=== PATIENT | female | born 1945 | race Caucasian/White ===

== ENCOUNTER 2018-05-29 01:21 | Observation (INO) | payer MEDICARE, OTHER ==
[2018-05-29 01:36] LABS: ABNORMAL IP MESSAGE 1; ADD MAN DIFF? NO; BASOPHILS % 0.2 % (0.0-2.0); EOSINOPHILS # 0.3 10^3/ul (0.0-0.5); EOSINOPHILS % 2.8 % (0.0-7.0); HEMATOCRIT 33.3 % (37.0-47.0); HEMOGLOBIN 11.3 g/dl (12.0-16.0); LYMPHOCYTES # 5.5 10^3/ul (0.8-2.9); LYMPHOCYTES % 51.4 % (15.0-51.0); MEAN CORPUSCULAR HEMOGLOBIN 28.5 pg (29.0-33.0); MEAN CORPUSCULAR HGB CONC 33.9 g/dl (32.0-37.0); MEAN CORPUSCULAR VOLUME 84.1 fl (82.0-101.0); MEAN PLATELET VOLUME 9.5 fl (7.4-10.4); MONOCYTE # 0.6 10^3/ul (0.3-0.9); MONOCYTES % 5.5 % (0.0-11.0); NEUTROPHIL # 4.3 10^3/ul (1.6-7.5); NEUTROPHILS % 39.9 % (39.0-77.0); PLATELET COUNT 243 10^3/UL (140-415); RED BLOOD COUNT 3.96 10^6/ul (4.20-5.40); RED CELL DISTRIBUTION WIDTH 14.3 % (11.5-14.5)
[2018-05-29 01:36] LABS: WHITE BLOOD COUNT 10.7 10^3/ul (4.8-10.8)
[2018-05-29 01:38] LABS: POSITIVE DIFF @See below
[2018-05-29 01:59] LABS: ANION GAP 16 (5-13); BLOOD UREA NITROGEN 14 mg/dl (7-20); CALCIUM 10.3 mg/dl (8.4-10.2); CARBON DIOXIDE 24 mmol/L (21-31); CHLORIDE 94 mmol/L (97-110); CREATININE 0.57 mg/dl (0.44-1.00); GLUCOSE 198 mg/dl (70-220); POTASSIUM 3.7 mmol/L (3.5-5.1); SODIUM 134 mmol/L (135-144)
[2018-05-29 02:10] LABS: TROPONIN-I < 0.012 ng/ml (0.000-0.120)
[2018-05-29] MEDS ORDERED: ONDANSETRON 4 MG INJ IV ×2 (03:30→20:30)
[2018-05-29] MEDS ORDERED: ACETAMINOPHEN 325 MG TAB PO ×2 (03:30→20:30)
[2018-05-29 09:37] LABS: CREATINE KINASE 35 IU/L (23-200)
[2018-05-29 09:50] LABS: CK INDEX 1.9; CK-MB 0.65 ng/ml (0.0-2.4); TROPONIN-I 0.059 ng/ml (0.000-0.120)
[2018-05-29 12:44] LABS: CREATINE KINASE 27 IU/L (23-200)
[2018-05-29 12:58] LABS: CK INDEX 1.9; TROPONIN-I 0.025 ng/ml (0.000-0.120)
[2018-05-29] MEDS ORDERED: NACL 0.9% 3 ML SYG IV (20:30)
[2018-05-29] MEDS ORDERED: ALBUTEROL/IPRATROPIUM (NEB) 3 ML AMP HHN (20:30)
[2018-05-29] MEDS ORDERED: NITROGLYCERIN (SL) 0.4 MG TAB SL (20:30)
[2018-05-29] MEDS ORDERED: HEPARIN 5,000 UNIT/0.5 ML VIAL (20:56)
[2018-05-29] MEDS ORDERED: GLUCOSE GEL 15 GRAM TUBE BUCCAL (21:00)
[2018-05-29] MEDS ORDERED: DEXTROSE 50% 50 ML SYRINGE IV ×2 (21:00)
[2018-05-29] MEDS ORDERED: GLUCOSE GEL 15 GRAM TUBE PO ×2 (21:00)
[2018-05-29] MEDS ORDERED: GLUCAGON 1 MG INJ IM (21:00)
[2018-05-29] MEDS: ATORVASTATIN 20 MG TAB PO (21:17)
[2018-05-29 21:23] LABS: CREATINE KINASE 24 IU/L (23-200)
[2018-05-29] MEDS: HEPARIN SODIUM 5,000 UNIT/ML VIAL SC (21:27)
[2018-05-29 21:36] LABS: CK INDEX 1.5; CK-MB 0.36 ng/ml (0.0-2.4); TROPONIN-I 0.013 ng/ml (0.000-0.120)
[2018-05-30 03:16] LABS: CREATINE KINASE < 20 IU/L (23-200)
[2018-05-30 03:28] LABS: CK-MB 0.37 ng/ml (0.0-2.4); TROPONIN-I 0.037 ng/ml (0.000-0.120)
[2018-05-30 06:37] LABS: ADD MAN DIFF? NO
[2018-05-30 06:44] LABS: BASOPHILS % 0.3 % (0.0-2.0); EOSINOPHILS # 0.2 10^3/ul (0.0-0.5); EOSINOPHILS % 2.3 % (0.0-7.0); HEMATOCRIT 34.3 % (37.0-47.0); HEMOGLOBIN 11.5 g/dl (12.0-16.0); LYMPHOCYTES # 4.6 10^3/ul (0.8-2.9); LYMPHOCYTES % 52.9 % (15.0-51.0); MEAN CORPUSCULAR HGB CONC 33.5 g/dl (32.0-37.0); MEAN CORPUSCULAR VOLUME 86.4 fl (82.0-101.0); MEAN PLATELET VOLUME 9.5 fl (7.4-10.4); MONOCYTE # 0.6 10^3/ul (0.3-0.9); MONOCYTES % 6.9 % (0.0-11.0); NEUTROPHIL # 3.3 10^3/ul (1.6-7.5); NEUTROPHILS % 37.4 % (39.0-77.0); PLATELET COUNT 230 10^3/UL (140-415); RED BLOOD COUNT 3.97 10^6/ul (4.20-5.40); RED CELL DISTRIBUTION WIDTH 14.3 % (11.5-14.5)
[2018-05-30 06:44] LABS: WHITE BLOOD COUNT 8.7 10^3/ul (4.8-10.8)
[2018-05-30 06:53] LABS: HEMOGLOBIN A1C 6.3 % (0-5.9)
[2018-05-30 07:16] LABS: ALANINE AMINOTRANSFERASE 21 IU/L (13-69); ALBUMIN 3.4 g/dl (3.3-4.9); ALKALINE PHOSPHATASE 73 IU/L (42-121); ANION GAP 9 (5-13); ASPARTATE AMINO TRANSFERASE 20 IU/L (15-46); BILIRUBIN,INDIRECT 0.1 mg/dl (0-1.1); BILIRUBIN,TOTAL 0.1 mg/dl (0.2-1.3); BLOOD UREA NITROGEN 14 mg/dl (7-20); CALCIUM 9.5 mg/dl (8.4-10.2); CARBON DIOXIDE 28 mmol/L (21-31); CHLORIDE 99 mmol/L (97-110); CHOL/HDL RATIO 3.6 RATIO; CHOLESTEROL 142 mg/dl (100-200); CREATININE 0.56 mg/dl (0.44-1.00); GLUCOSE 160 mg/dl (70-220); HDL CHOLESTEROL 39 mg/dl (33-92); LDL CHOLESTEROL,CALCULATED 73 mg/dl; MAGNESIUM 1.9 mg/dl (1.7-2.5); POTASSIUM 4.1 mmol/L (3.5-5.1); SODIUM 136 mmol/L (135-144); TOTAL PROTEIN 6.8 g/dl (6.1-8.1); TRIGLYCERIDES 148 mg/dl (0-149)
[2018-05-30] MEDS ORDERED: HEPARIN 5,000 UNIT/0.5 ML VIAL ×2 (08:06→21:16)
[2018-05-30] MEDS: metFORMIN 500 MG TAB PO (08:09)
[2018-05-30] MEDS: HYDROCHLOROTHIAZIDE 25 MG TAB PO (08:10)
[2018-05-30] MEDS: ATENOLOL 25 MG TAB PO (08:10)
[2018-05-30] MEDS: LOSARTAN 50 MG TAB PO (08:10)
[2018-05-30] MEDS: ASPIRIN (EC) 81 MG TAB PO (08:10)
[2018-05-30] MEDS: ISOSORBIDE MONONITRATE(SR)60 MG TAB PO (08:10)
[2018-05-30] MEDS: AMLODIPINE 10 MG TAB PO (08:10)
[2018-05-30] MEDS: HEPARIN SODIUM 5,000 UNIT/ML VIAL SC ×2 (08:19→21:23)
[2018-05-30] MEDS ORDERED: NON-FORMULARY/PATIENT OWN MED (Olmesartan-Amlodipine-HCTZ (Tribenzor) 1 TAB) PO (09:00)
[2018-05-30] MEDS: SOD CHLORIDE 0.9% 100 ML (20:43)
[2018-05-30] MEDS: IOHEXOL 100 ML (20:43)
[2018-05-30] MEDS: ATORVASTATIN 20 MG TAB PO (21:20)
[2018-05-31 07:01] LABS: ADD MAN DIFF? NO
[2018-05-31 07:11] LABS: BASOPHILS % 0.3 % (0.0-2.0); EOSINOPHILS # 0.2 10^3/ul (0.0-0.5); EOSINOPHILS % 2.2 % (0.0-7.0); HEMATOCRIT 33.5 % (37.0-47.0); HEMOGLOBIN 11.3 g/dl (12.0-16.0); LYMPHOCYTES # 4.1 10^3/ul (0.8-2.9); LYMPHOCYTES % 40.2 % (15.0-51.0); MEAN CORPUSCULAR HEMOGLOBIN 28.9 pg (29.0-33.0); MEAN CORPUSCULAR HGB CONC 33.7 g/dl (32.0-37.0); MEAN CORPUSCULAR VOLUME 85.7 fl (82.0-101.0); MEAN PLATELET VOLUME 9.8 fl (7.4-10.4); MONOCYTE # 0.7 10^3/ul (0.3-0.9); MONOCYTES % 7.2 % (0.0-11.0); NEUTROPHILS % 49.8 % (39.0-77.0); PLATELET COUNT 249 10^3/UL (140-415); RED BLOOD COUNT 3.91 10^6/ul (4.20-5.40); RED CELL DISTRIBUTION WIDTH 14.2 % (11.5-14.5)
[2018-05-31 07:11] LABS: WHITE BLOOD COUNT 10.1 10^3/ul (4.8-10.8)
[2018-05-31 07:43] LABS: LIPASE 92 U/L (23-300)
[2018-05-31 07:55] LABS: ALANINE AMINOTRANSFERASE 22 IU/L (13-69); ALBUMIN 3.9 g/dl (3.3-4.9); ALBUMIN/GLOBULIN RATIO 1.21; ALKALINE PHOSPHATASE 81 IU/L (42-121); ANION GAP 10 (5-13); ASPARTATE AMINO TRANSFERASE 21 IU/L (15-46); BILIRUBIN,INDIRECT 0.3 mg/dl (0-1.1); BILIRUBIN,TOTAL 0.3 mg/dl (0.2-1.3); BLOOD UREA NITROGEN 11 mg/dl (7-20); CALCIUM 9.6 mg/dl (8.4-10.2); CARBON DIOXIDE 27 mmol/L (21-31); CHLORIDE 98 mmol/L (97-110); CREATININE 0.54 mg/dl (0.44-1.00); GLUCOSE 156 mg/dl (70-220); MAGNESIUM 1.9 mg/dl (1.7-2.5); PHOSPHORUS 3.7 mg/dl (2.5-4.9); SODIUM 135 mmol/L (135-144); TOTAL PROTEIN 7.1 g/dl (6.1-8.1)
[2018-05-31] MEDS ORDERED: HEPARIN 5,000 UNIT/0.5 ML VIAL (08:59)
[2018-05-31] MEDS: HEPARIN SODIUM 5,000 UNIT/ML VIAL SC (09:00)
[2018-05-31] MEDS: ISOSORBIDE MONONITRATE(SR)60 MG TAB PO (09:10)
[2018-05-31] MEDS: HYDROCHLOROTHIAZIDE 25 MG TAB PO (09:13)
[2018-05-31] MEDS: LOSARTAN 50 MG TAB PO (09:14)
[2018-05-31] MEDS: AMLODIPINE 10 MG TAB PO (09:14)
[2018-05-31] MEDS: ATENOLOL 25 MG TAB PO (09:14)
[2018-05-31] MEDS: ASPIRIN (EC) 81 MG TAB PO (09:14)
[2018-05-31] MEDS ORDERED: BARIUM SULF 2% 450 ML BTL (BERRY SMOOTHIE) PO (14:30)
[2018-05-31] MEDS ORDERED: SOD CHLORIDE 0.9% 1,000 ML IV (14:30)
== END 2018-05-31 15:50 | disposition home or self-care (01) ==
LOC: TEL 07:53 → E/R 01:21 → TEL 05-30 14:57
DX: R07.89 Other chest pain (principal); I25.10 Atherosclerotic heart disease of native coronary artery without angina pectoris; Z95.5 Presence of coronary angioplasty implant and graft; D64.9 Anemia, unspecified; E11.9 Type 2 diabetes mellitus without complications; I10 Essential (primary) hypertension; Z87.891 Personal history of nicotine dependence; Z79.84 Long term (current) use of oral hypoglycemic drugs; Z79.82 Long term (current) use of aspirin
CPT/HCPCS: 36415; 71045; 71275; 80048; 80053; 80061; 82550; 82553; 82962; 83036; 83690; 83735; 84100; 84443; 84484; 85025; 93005; 93306; 99285-25; G0378